=== PATIENT | female | born 1980 | race Two or more races ===

== ENCOUNTER 2018-02-24 11:41 | Emergency (ER) | payer SELFPAY ==
[~2018-02-24] VITALS: Ht 149.9 cm; Wt 72.1 kg
[2018-02-24] MEDS ORDERED: MOTRIN600 MG PO (14:19)
[2018-02-24 14:39] VITALS: BP 113/80
== END 2018-02-24 14:40 | disposition home or self-care (01) ==
LOC: EME 11:41
DX: S93.402A Sprain of unspecified ligament of left ankle, initial encounter (principal); X50.1XXA Overexertion from prolonged static or awkward postures, initial encounter
CPT/HCPCS: 73610; 73630; 99281; 99284